=== PATIENT | female | born 1970 | race Caucasian/White ===

== ENCOUNTER 2022-12-09 | Observation (INO) | payer MEDICARE, BC, SELFPAY ==
[2022-12-09 00:24] VITALS: BMI 48.5
[2022-12-09 00:31] VITALS: PULSE 91
--- NOTE | 2022-12-09 00:31 | CA_ITS ---
APPROVED REPORT EXAM: Comprehensive 2D, Doppler, and color-flow Echocardiogram [employer] Combination: Sandra Elias, RT(R) Ht: 5 ft 4 in Wt: 283lbs BSA: 2.27 BP: 164/88 mmHg Indications: NSTEMI,CP,DM,CHF,THN,HLP MORBID OBESITY 2D Dimensions LVOT 2.37 cm (M/F) 1.5-2.5 M-Mode Dimensions RVDd 2.94 cm (0.9-2.6) LA Diam 4.75 cm (1.9-4.0) LVDd 8.30 cm (3.5-5.7) Ao Diam 3.27 cm (2.0-3.7) LVDs 7.09 cm (3.5-5.7) IVSd 0.80 cm (0.6-1.1) PWd 1.09 cm (0.6-1.1) EF (Teich) 29.70% FS 14.60% EDV (Teich) 374.10 mL ESV (Teich) 262.90 mL LV Diastology E Decel Time 203.00 (160-240 msec) E/A Ratio 3.0 MED E' 6.10 (< 7 cm/sec) E'/MED E' Ratio 17.80 (>14) LAT E' 5.20 (<10 cm/sec) E/LAT E' Ratio 20.88 (>14) Mitral Valve MV E Max Damián. 109.00 (40-130 cm/s) MV A Velocity 36.00 (40-130 cm/s) E/A Ratio 2.99 MV Decel. Time 203.00 (160-240 ms) MV PHT 60.00 ms Left Ventricle Technically difficult study because of the patient factors and poor acoustic windows. Left atrium is mildly enlarged, left ventricle is mildly dilated, severe reduced left ventricular systolic function, estimated ejection fraction 30%, left ventricle is globally hypokinetic, diastolic parameters are inconclusive. Right Ventricle Right atrium and right ventricular normal size and contractility, pacemaker lead seen in right ventricle. Aortic Valve Aortic valve is minimally thickened and fibrosed there is no aortic stenosis or aortic insufficiency. Mitral Valve Mitral valve leaflets are minimally thickened, chordal structures are abnormally thickened and calcified, there is no significant mitral inflow obstruction, there is mild mitral regurgitation. Tricuspid Valve Tricuspid grossly normal, there is mild tricuspid regurgitation, tricuspid regurgitation jet velocity is inadequate for calculation of the right ventricular systolic pressure. Pulmonic Valve Pulmonic valve is poorly visualized. Great Vessels Aortic root is normal size. Inferior vena cava is poorly visualized. Pericardium No significant pericardial effusion noted. Conclusion 1. Technically difficult study because of the patient factors and poor acoustic windows. 2. Mildly enlarged left atrium, dilated left ventricle, severely reduced left ventricular systolic function, estimated ejection fraction 30%, left ventricle is globally hypokinetic, diastolic parameters are inconclusive. 3. Abnormal mitral valve as described above without significant mitral inflow obstruction, there is mild mitral regurgitation. 4. No significant pericardial effusion noted. 5. Inferior vena cava is poorly visualized. Electronically signed by : Barry Jamison MD 12/09/2022 17:12:09
--- NOTE | 2022-12-09 00:35 | EXP.HP ---
History of Present Illness *Admission Date: 12/09/22 *Reason for visit:: chest pain *History of present illness: Pt is a transfer from [place] due to chest pain / nstemi. PT presented to their facility with chest pain of 12 hours duration. Patient states that at 1:30 PM on 12/08 she began having chest pain that occurred with rest and exertion. She also endorses weight gain the last few days, increased swelling in her legs and dyspnea and orthopnea. She was taking 80 mg p.o. twice daily Lasix but was decreased to 40 p.o. Lasix twice daily. Since dose reduction she has had swelling. In the ER troponins positive greater than 1000, EKG with no ST segment changes. She was started on aspirin Brilinta and heparin drip. She has not able to take nitro due to allergy (rash and itching). She has been given 2 mg morphine which helps with her symptoms for 1 hour. [facility] was contacted for transfer and accepted patient. [facility] Disclaimer: The information contained in this section may have been updated after the patient was seen, as this information can be updated by other users. Medical History (Updated 12/09/22 @ 05:55 by Julio Alexander MD) Chronic kidney disease Congestive heart failure COPD (chronic obstructive pulmonary disease) Diabetes mellitus, type 2 Edema History of anemia History of back pain History of chest pain History of gastroesophageal reflux (GERD) History of left heart catheterization (LHC) Hyperlipidemia Hypertension Osteoarthritis Pneumonia Surgical History History of appendectomy History of automatic internal cardiac defibrillator (AICD) History of cholecystectomy Family History (Updated 12/09/22 @ 01:37 by Michelle Singletary RN) Other Cancer of kidney Social History (Updated 12/09/22 @ 01:33 by Michelle Singletary RN) Smoking Status: Never smoker alcohol intake: never current occupational status: disabled Travel in the last 8 weeks: None Review of Systems Review of Systems Review of systems:: unable to obtain (Conversational dyspnea) Meds Home Medications and Allergies Home Medications Medication Instructions Recorded Confirmed Type acetaminophen 325 mg tablet 325 mg PO QID PRN Pain 12/09/22 12/09/22 History (Tylenol) allopurinol 100 mg tablet 100 mg PO DAILY Gout 12/09/22 12/09/22 History ampicillin sodium 2 gram 2 g IV Q8 Infection 12/09/22 12/09/22 History intravenous solution aspirin 81 mg capsule 81 mg PO DAILY Blood thinner 12/09/22 12/09/22 History atorvastatin 80 mg tablet 80 mg PO DAILY Cholesterol 12/09/22 12/09/22 History ceftriaxone 1 gram intravenous 1 g IV Q12H Infection 12/09/22 12/09/22 History solution clopidogrel 75 mg tablet 75 mg PO DAILY Blood thinner 12/09/22 12/09/22 History duloxetine 60 mg capsule,delayed 60 mg PO DAILY Depression 12/09/22 12/09/22 History release sprinkle furosemide 40 mg tablet 40 mg PO BID Heart failure 12/09/22 12/09/22 History gabapentin 100 mg capsule 100 mg PO TID Pain 12/09/22 12/09/22 History lorazepam 2 mg tablet 2 mg PO TID PRN Anxiety 12/09/22 12/09/22 History melatonin 10 mg tablet 10 mg PO HS PRN Sleep 12/09/22 12/09/22 History metoprolol succinate 25 mg capsule 25 mg PO DAILY Hypertension 12/09/22 12/09/22 History sprinkle, ext. release 24 hr ondansetron HCl 4 mg tablet 4 mg PO Q6H PRN Nausea And Vomiting 12/09/22 12/09/22 History potassium chloride 20 mEq 20 meq PO DAILY electrolyte 12/09/22 12/09/22 History tablet,extended release promethazine 12.5 mg tablet 12.5 mg PO Q6H PRN Nausea 12/09/22 12/09/22 History ranolazine 1,000 mg 1,000 mg PO Q12 Chest pain 12/09/22 12/09/22 History tablet,extended release,12 hr (Ranexa) tizanidine 4 mg capsule 4 mg PO HS PRN Muscle Spasm 12/09/22 12/09/22 History New Prescriptions to Start Prescriptions: Allergies Allergy/AdvReac Type Severity Reaction Status Date / Time keto
[2022-12-09 00:40] VITALS: BP 143/91; PULSE 90; RESP 20; TEMP 36.7; O2SAT 98
--- NOTE | 2022-12-09 00:45 | XR_ITS ---
PROCEDURE INFORMATION: Exam: XR Chest Exam date and time: 12/09/2022 12:51 AM Age: 52 years old Clinical indication: Shortness of breath; Additional info: Chf TECHNIQUE: Imaging protocol: Radiologic exam of the chest. Views: 1 view. COMPARISON: No relevant prior studies available. FINDINGS: Tubes, catheters and devices: Dual lead left-sided cardiac pacemaker. Lungs: Granulomatous changes. Mild atelectasis in the lung bases. Pleural spaces: Unremarkable. No pleural effusion. No pneumothorax. Heart/Mediastinum: Cardiomegaly. Bones/joints: Unremarkable. IMPRESSION: No acute findings.
[2022-12-09 01:13] LABS: POC Glucose,Bedside 125 (70-110)
[2022-12-09 01:59] LABS: Microscopic, Urine URINE MICROSCOPIC (MICROSCOPIC)
[2022-12-09 02:01] LABS: Basophils % 0.4 % (0.1-2.0); Eosinophils # 0.6 K/mm3 (0.0-0.4); Hematocrit 35.2 % (37.0-47.0); Hemoglobin 11.4 g/dL (12.2-16.2); Lymphocytes # 1.9 K/mm3 (0.7-4.5); Lymphocytes % 23.5 % (10-50); Mean Corpuscular HGB Conc 32.5 g/dL (31.8-35.4); Mean Corpuscular Hemoglobin 27.7 pg (27.0-31.2); Mean Corpuscular Volume 85.4 fl (81-99); Monocytes # 0.4 K/mm3 (0.1-1.0); Monocytes % 5.5 % (1.7-9.3); Neutrophils % 62.6 % (37.0-80.0); Platelet Count 304 K/mm3 (142-424); Red Blood Count 4.12 M/mm3 (4.20-5.40); Red Cell Distribution Width 17.1 % (11.5-17.5); White Blood Count 7.9 K/mm3 (4.8-10.8)
[2022-12-09 02:08] LABS: Creatine Kinase 113 U/L (30-135)
[2022-12-09 02:08] LABS: Appearance,Urine CLEAR (Clear); Bilirubin,Urine Negative (Negative); Blood, Urine Negative (Negative); Color,Urine YELLOW (Yellow); Glucose,Urine (UA) Negative (Negative); Ketones,Urine Negative (Negative); Leukocyte Esterase,Urine Negative (Negative); Nitrate,Urine Negative (Negative); Protein,Urine TRACE (Negative); Specific Gravity, Urine 1.015 (1.005-1.030); Urobilinogen,Urine 0.2 EU/dl (0.2)
[2022-12-09 02:09] LABS: Lactic Acid 1.2 mmol/L (0.7-2.1)
[2022-12-09 02:11] LABS: INR 0.96 (0.9-1.1); Prothrombin Time 10.4 seconds (10.1-12.5)
[2022-12-09 02:18] LABS: CKMB Relative Index 1.2 U/L (0-4.0); Creatine Kinase MB 1.4 ng/ml (0.0-2.03)
[2022-12-09 02:21] LABS: Troponin I 0.03 ng/ml (0.00-0.034)
[2022-12-09 02:27] LABS: Chloride 104 mmol/L (98-107); Sodium 141 mmol/L (136-145)
[2022-12-09 02:28] LABS: Potassium 3.7 mmoL/L (3.5-5.1)
[2022-12-09 02:30] LABS: Alanine Aminotransferase 18 U/L (12-78); Albumin/Globulin Ratio 1.2 (1.1-1.8); Alkaline Phosphatase 141 U/L (38-126); Anion Gap 10.7 mEq/L (5-15); Aspartate Amino Transferase 21 U/L (14-36); Bilirubin,Total 0.8 mg/dl (0.2-1.3); Blood Urea Nitrogen 14 mg/dl (7-17); Carbon Dioxide 30 mmol/L (22.0-30.0); Cholesterol 138 mg/dl (140-200); Creatinine Clearance Estimated 25 mL/min (50-200); Estimated Glomerular Filt Rate 23 ml/min (>60); GFR (African American) 28 ML/MIN (>60); Globulin 3.3 g/dL (1.3-3.2); Phosphorous 3.2 mg/dl (2.5-4.5); Total Protein,Serum 7.3 g/dl (6.3-8.2); Triglycerides 214 mg/dl (30-150); VLDL Cholesterol 43 mg/dL (0-40)
[2022-12-09 02:31] LABS: Calcium 8.8 mg/dl (8.4-10.2); Chol/HDL Ratio 4.2 (1-3.5); Glucose 165 mg/dl (74-100); HDL Cholesterol 33 mg/dl (40-60); Magnesium 1.5 mg/dl (1.6-2.3)
[2022-12-09 02:32] LABS: Activated Partial Thrombo Time 28.2 seconds (22.8-30.6)
[2022-12-09 02:42] LABS: Direct LDL Cholesterol 74.32 mg/dL (100-129)
--- NOTE | 2022-12-09 02:44 | PC.NURSE ---
spoke with shahab melvin from [facility] regarding patients ptt. no changes to rate. recheck ptt in [address] order.
[2022-12-09 04:00] VITALS: BP 161/82; PULSE 80; PULSE 95; RESP 22; TEMP 36.7; O2SAT 97; BMI 48.3
--- NOTE | 2022-12-09 05:37 | PC.NURSE ---
[facility] transfer center called requesting bed at 2138 on 12/08. Pt information taken and relayed to Hospitalist (Roscoe Alexander). [facility] called back at 215 with acceptance from hospitalist. Bed assignment given at this time (208). Pt arrived to ED at 0000 12/09.
--- NOTE | 2022-12-09 06:08 | PC.NURSE ---
a&ox4. 2L nc. receving heparin gtt at 20ml/hr. horvath in place draining pale urine. npo after midnight for cards consult. prn pain med given for chest pain.
[2022-12-09 06:25] LABS: Phosphorous 3.7 mg/dl (2.5-4.5)
[2022-12-09 06:42] LABS: Troponin I 0.03 ng/ml (0.00-0.034)
[2022-12-09 07:06] LABS: POC Glucose,Bedside 137 (70-110)
--- NOTE | 2022-12-09 07:51 | HMH.PHAHEP ---
[facility] Heparin Dosing Demographic Data Admission date:: 12/09/22 Date: 12/09/22 Time: 07:51 Allergies Allergy/AdvReac Type Severity Reaction Status Date / Time ketorolac [From Toradol] Allergy Verified 12/09/22 00:29 metformin Allergy Verified 12/09/22 00:29 nitroglycerin Allergy Verified 12/09/22 00:29 tramadol Allergy Verified 12/09/22 00:29 Height: 1.63 m Weight: 128.4 kg Indication Medication therapy:: Heparin Current Active Problems (Updated 12/09/22 @ 05:55 by Julio Alexander MD) NSTEMI (non-ST elevated myocardial infarction) (Acute) CVA?: No Bleeding problem?: No Kidney disease?: No LA?: No Desired PTT range:: 50-75 seconds Labs Anticoagulation Lab Results:: 12/09/22 01:45 Hgb 11.4 L Hct 35.2 L Plt Count 304 Monitoring Dose Monitor 1: Date: 12/09/22 Time: 01:45 PTT Result:: 28.2 Infusion Rate:: 1,000 UNITS/HR Comment:: 4,000 UNIT BOLUS Dose Monitor 2: Date: 12/09/22 Time: 08:30 PTT Result:: 36.0 Infusion Rate:: INCREASE RATE TO 1,500 UNITS/HR Comment:: 4,000 UNIT BOLUS Core Measures Is INR > or = 2 at discharge?: No Most Recent Labs:: Laboratory Results - last 24 hr 12/09/22 01:04: POC Glucose 125 H 12/09/22 01:20: Urine Color Yellow, Urine Appearance Clear, Urine pH 7.0, Ur Specific [place] 1.015, Urine Protein Trace, Urine Glucose (UA) Negative, Urine Ketones Negative, Urine Blood Negative, Urine Nitrate Negative, Urine Bilirubin Negative, Urine Urobilinogen 0.2, Ur Leukocyte Esterase Negative, Urine RBC None, Urine WBC None, Ur Squamous Epith Cells None, Urine Bacteria None 12/09/22 01:45: Total Creatine Kinase 113, CK-MB (CK-2) 1.4, CK-MB (CK-2) Rel Index 1.2, Troponin I 0.03 12/09/22 01:45: WBC 7.9, RBC 4.12 L, Hgb 11.4 L, Hct 35.2 L, MCV 85.4, MCH 27.7, MCHC 32.5, RDW 17.1, Plt Count 304, MPV 8.0, Neut % (Auto) 62.6, Lymph % (Auto) 23.5, [place] % (Auto) 5.5, Eos % (Auto) 8.0, Baso % (Auto) 0.4, Neut # (Auto) 5.0, Lymph # (Auto) 1.9, [place] # (Auto) 0.4, Eos # (Auto) 0.6 H, Baso # (Auto) 0.0 12/09/22 01:45: PT 10.4, INR 0.96 12/09/22 01:45: Sodium 141, Potassium 3.7, Chloride 104, Carbon Dioxide 30, Anion Gap 10.7, BUN 14, Creatinine 2.20 H, Estimated Creat Clear 25, Estimated GFR 23 L, Est GFR ( Amer) 28 L, Glucose 165 H, Calcium 8.8, Phosphorus 3.2, Magnesium 1.5 L, Total Bilirubin 0.8, AST 21, ALT 18, Alkaline Phosphatase 141 H, Total Protein 7.3, Albumin 4.0, Globulin 3.3 H, Albumin/Globulin Ratio 1.2, Triglycerides 214 H, Cholesterol 138 L, LDL Cholesterol Direct 74.32 L, VLDL Cholesterol 43 H, HDL Cholesterol 33 L, Cholesterol/HDL Ratio 4.2 H 12/09/22 01:45: Lactate 1.2 12/09/22 01:45: APTT 28.2 12/09/22 06:04: Phosphorus 3.7, Troponin I 0.03 12/09/22 06:55: POC Glucose 137 H Were Heparin and Warfarin started on the same day?: No
[2022-12-09 07:53] LABS: Coronavirus 19, PCR Not Detected (NotDetected); Influenza A, PCR Not Detected (NotDetected); Influenza B, PCR Not Detected (NotDetected)
[2022-12-09 08:00] VITALS: BP 159/92; PULSE 89; PULSE 90; RESP 16; TEMP 36.8; O2SAT 97
--- NOTE | 2022-12-09 08:23 | HMH.PHAINT1 ---
Pharmacy Intervention Comments: Medication reconciliation completed using external fill history
--- NOTE | 2022-12-09 11:13 | EXP.DC.SUM ---
General Admission date:: 12/09/22 Discharge date: 12/09/22 HPI HPI HPI: Pt is a transfer from [facility] ED due to chest pain / nstemi-type II. PT presented to their facility with chest pain of 12 hours duration. Patient states that at 1:30 PM on 12/08 she began having chest pain that occurred with rest and exertion. She also endorses weight gain the last few days, increased swelling in her legs and dyspnea and orthopnea. She was taking 80 mg p.o. twice daily Lasix but was decreased to 40 p.o. Lasix twice daily. Since dose reduction she has had swelling. In the ER troponins positive greater than 1000 and plateaued, EKG with no ST segment changes. She was started on aspirin Brilinta and heparin drip. She has not able to take nitro due to allergy (rash and itching). She has been given 2 mg morphine which helps with her symptoms for 1 hour. [facility] was contacted for transfer and accepted patient. Hospital Course Hospital Course Hospital Course: The patient is admitted to the medical unit with telemetry and pulse oximetry monitoring. She was continued on IV loop diuretic therapy as started in the ED at [facility]. The patient identified significant diuresis and reported improvement with no further chest pain. Cardiology evaluated the patient and recommended conservative management with loop diuretic therapy. Her troponins were consistent with a type II secondary to heart failure with reduced ejection fraction. Her ED BNP was reviewed. Her recent multiple hospitalizations were noted. Her [facility] admission on November 14 and discharged on November 16 was reviewed as well. She identified Dr. Lucas as her regular sex therapist ([place], [place]). Her echocardiogram from her hospitalization in October was reviewed identifying an ejection fraction of 20-25%. She has an AICD. We discussed her multiple hospitalizations, reduced ejection fraction, chronic kidney disease (stage IV with baseline creatinine 2.4) and respiratory disease (COPD and PAH). We discussed the importance of compliance with medications and routine outpatient follow-ups. We have recommended palliative care consultation and she will follow-up with her PCP to have further discussions concerning her advanced congestive heart failure and co-morbidities. We have recommended a 1 week follow-up with her PCP. I spent 35 minutes in [id number] time with the patient and nursing staff concerning the discharge process. We discussed the admitting diagnoses and hospital course. We discussed identified improvement and the patient's desire to be discharged. We reviewed inpatient studies and imaging. The patient voiced understanding on the importance of follow-up with her primary care provider and specialist(s). The patient plans to be compliant with the medication regimen prescribed and follow-up appointments. She understands that she can return to the emergency department with any sudden changes or concerns. Exam Data for Last 24 hours Vital signs and Labs for Last 24 Hours: Temp Pulse Resp BP Pulse Ox 98.2 F 89 16 159/92 H 97 12/09/22 08:00 12/09/22 08:00 12/09/22 08:00 12/09/22 08:00 12/09/22 08:00 Laboratory Results - last 24 hr 12/09/22 01:04: POC Glucose 125 H 12/09/22 01:20: Urine Color Yellow, Urine Appearance Clear, Urine pH 7.0, Ur Specific [place] 1.015, Urine Protein Trace, Urine Glucose (UA) Negative, Urine Ketones Negative, Urine Blood Negative, Urine Nitrate Negative, Urine Bilirubin Negative, Urine Urobilinogen 0.2, Ur Leukocyte Esterase Negative, Urine RBC None, Urine WBC None, Ur Squamous Epith Cells None, Urine Bacteria None 12/09/22 01:45: Total Creatine Kinase 113, CK-MB (CK-2) 1.4, CK-MB (CK-2) Rel Index 1.2, Troponin I 0.03 12/09/22 01:45: WBC 7.9, RBC 4.12 L, Hgb 11.4 L, Hct 35.2 L, MCV 85.4, MCH 27.7, MCHC 32.5, RDW 17.1, Plt Count 304, MPV 8.0, Neut % (Auto) 62.6, Lymph % (A
--- NOTE | 2022-12-09 11:22 | EXP.CARD.CON ---
History of Present Illness History of Present Illness Consult date: 12/09/22 Requesting physician: Den Decker Consult reason: chest pain Chief complaint: nstemi Additional Medical History:: Significant Past Medical Hx Chronic hypoxic respiratory failure due to COPD Diabetes mellitus Chronic HFrEF- EF 25 % s/p AICD CKD stage IV- solitary kidney- baseline kidney function 2.4 Chronically elevated troponin Moderate MR s/p mv clip Oct 2021 mild pulmonary htn [facility] 07/03/2022- Diffuse CAD. No intervention indicated- [facility] History of present illness: Per Hospitalist note: Pt is a transfer from [place] due to chest pain / nstemi. PT presented to their facility with chest pain of 12 hours duration.? Patient states that at 1:30 PM on 12/08 she began having chest pain that occurred with rest and exertion.? She also endorses weight gain the last few days, increased swelling in her legs and dyspnea and orthopnea.? She was taking 80 mg p.o. twice daily Lasix but was decreased to 40 p.o. Lasix twice daily.? Since dose reduction she has had swelling. In the ER troponins positive greater than 1000, EKG with no ST segment changes.? She was started on aspirin Brilinta and heparin drip.? She has not able to take nitro due to allergy (rash and itching).? She has been given 2 mg morphine which helps with her symptoms for 1 hour.? [facility] was contacted for transfer and accepted patient. Cardiology note: Patient endorses above story. Reports after presenting to [facility] was given morphine and symptoms resolved. Reports she had a LHC in June or July of last year at [facility] and did not get any stenting. Reports has chronically occluded lesions and sees Dr. Bell (cardiology) in [place], who she saw last week. Patient also reports she is currently taking IV antibiotics at home for bacteremia. Initial and repeat trop at [facility] are 0.03. Creatinine noted to be 2.2. EKG is negative for acute ischemic changes. Records reviewed from [place]- of note patient has been evalutated at 5 different facilities since july and usually leaves AMA after recieving narcotic pain medications. Currently patient is resting, denies chest pain or soa. [facility] Disclaimer: The information contained in this section may have been updated after the patient was seen, as this information can be updated by other users. Medical History (Updated 12/09/22 @ 11:37 by Payal Billy APRN) Chronic kidney disease Congestive heart failure COPD (chronic obstructive pulmonary disease) Diabetes mellitus, type 2 Edema History of anemia History of back pain History of chest pain History of gastroesophageal reflux (GERD) History of left heart catheterization (LHC) Hyperlipidemia Hypertension Osteoarthritis Pneumonia Surgical History History of appendectomy History of automatic internal cardiac defibrillator (AICD) History of cholecystectomy Family History (Updated 12/09/22 @ 01:37 by Michelle Singletary RN) Other Cancer of kidney Social History (Updated 12/09/22 @ 01:33 by Michelle Singletary RN) Smoking Status: Never smoker alcohol intake: never current occupational status: disabled Travel in the last 8 weeks: None Review of Systems Review of Systems Review of systems:: pertinent systems reviewed and negative unless documented below *Cardiovascular Cardiovascular: Reports chest pain at rest Exam Data for Last 24 hours Vital signs and Labs for Last 24 Hours: Temp Pulse Resp BP Pulse Ox 98.2 F 89 16 159/92 H 97 12/09/22 08:00 12/09/22 08:00 12/09/22 08:00 12/09/22 08:00 12/09/22 08:00 Laboratory Results - last 24 hr 12/09/22 01:04: POC Glucose 125 H 12/09/22 01:20: Urine Color Yellow, Urine Appearance Clear, Urine pH 7.0, Ur Specific [place] 1.015, Urine Protein Trace, Urine Glucose (UA) Negative, Urine Ketones Negative, Urine Blood Negative,
[2022-12-09 11:41] VITALS: PULSE 82; RESP 20
--- NOTE | 2022-12-09 12:13 | HMH.PHAINT1 ---
Pharmacy Intervention Comments: Discussed discharge medications with patient. Patient verbalized understanding and had no questions at this time
--- NOTE | 2022-12-09 12:49 | PC.NURSE ---
PT WILL BE DISCHARGED HOME WITH FOLLOW UP APPOINTMENTS. PT WILL NEED TO FOLLOW UP WITH HER CARDIOLOGY AND HER PCP. PT STATED SHE WOULD BE COMPLIANT WITH FOLLOW UP AND HER MEDICATION REGIMEN. PICC LINE DRESSING WAS CHANGED BEFORE DISCHARGE. CATHETER WAS DC'D. PT DIURESED WELL WITH IV LASIX.
--- NOTE | 2022-12-10 11:30 | CARE MANAGER ---
Spoke with patient related to hospital discharge. Patient states she is picking up her Magnesium this afternoon and is aware of her follow up appointments. Denies any questions or concerns at this time. SEGUNDO Oakes
== END 2022-12-09 12:57 | disposition home or self-care (01) ==
PROVIDERS: Internal Medicine; Admitting Provider Student in an Organized Health Care Education/Training Program; PCP Pediatrics; Visit Provider Family Medicine
DX: I13.0 Hypertensive heart and chronic kidney disease with heart failure and stage 1 through stage 4 chronic kidney disease, or unspecified chronic kidney disease (principal); I21.A1 Myocardial infarction type 2; I50.23 Acute on chronic systolic (congestive) heart failure; I34.0 Nonrheumatic mitral (valve) insufficiency; E11.22 Type 2 diabetes mellitus with diabetic chronic kidney disease; Z95.810 Presence of automatic (implantable) cardiac defibrillator; Z79.01 Long term (current) use of anticoagulants; J96.01 Acute respiratory failure with hypoxia; Z79.4 Long term (current) use of insulin; N18.4 Chronic kidney disease, stage 4 (severe)
CPT/HCPCS: G0378; G0379; 36415; 71045; 80053; 80061; 81001; 82550; 82553; 82962; 83605; 83735; 84100; 84484; 85025; 85610; 85730; 87040; 93306; C9803; J0696; U0003; U0005

== ENCOUNTER 2023-10-28 02:12 | Observation (INO) | payer MEDICARE, BC, SELFPAY ==
[2023-10-28 02:30] VITALS: BP 155/84; PULSE 74; RESP 18; TEMP 36.8; O2SAT 100
--- NOTE | 2023-10-28 02:30 | PC.NURSE ---
pt arrived to floor via EMS @2:20
--- NOTE | 2023-10-28 02:31 | P.HP_ITS ---
History of Present Illness *Admission Date: 10/28/23 *Reason for visit:: CP *History of present illness: This is a 53yo F with PMHx of CAD, IDDM, CHF, mitral regurgitation, PPM in situ, CKD, transferred from [place] due to chest pain / nstemi. PT presented to their facility with intermittent chest pain, and high blood sugar. In the ER troponins positive greater than 1000, EKG with no ST segment changes. She was started on aspirin Brilinta and heparin drip. She has not able to take nitro due to allergy (rash and itching). She has been given 2 mg morphine which helps with her symptoms for 1 hour. there was no cardiology available for consult therefore [facility] was contacted for transfer and accepted patient. [facility] Disclaimer: The information contained in this section may have been updated after the patient was seen, as this information can be updated by other users. Medical History (Updated 10/28/23 @ 09:02 by FILOMENA Weaver) Chronic kidney disease Congestive heart failure COPD (chronic obstructive pulmonary disease) Diabetes mellitus, type 2 Edema History of anemia History of back pain History of chest pain History of gastroesophageal reflux (GERD) History of left heart catheterization (LHC) Hyperlipidemia Hypertension Osteoarthritis Pneumonia Surgical History (Updated 10/28/23 @ 06:23 by Kelvin Owen APRN) History of appendectomy History of automatic internal cardiac defibrillator (AICD) History of cholecystectomy Family History (Updated 10/28/23 @ 02:38 by Lia Guerrero RN) Mother Breast cancer Grandmother Breast cancer Other Cancer of kidney Social History (Updated 10/28/23 @ 02:39 by Lia Guerrero RN) Smoking Status: Former smoker alcohol intake: never current occupational status: disabled Travel in the last 8 weeks: None Review of Systems Review of Systems Review of systems:: pertinent systems reviewed and negative unless documented below Meds Home Medications and Allergies Home Medications Medication Instructions Recorded Confirmed Type acetaminophen 325 mg tablet 325 mg PO QID PRN Pain 12/09/22 10/28/23 History (Tylenol) albuterol sulfate 90 mcg/actuation 1 puff inhalation QIDP PRN 12/09/22 10/28/23 History aerosol inhaler breathing problems allopurinol 100 mg tablet 100 mg PO DAILY Gout 12/09/22 10/28/23 History aripiprazole 2 mg tablet 2 mg PO DAILY mood 12/09/22 10/28/23 History atorvastatin 80 mg tablet 80 mg PO DAILY Cholesterol 12/09/22 10/28/23 History duloxetine 60 mg capsule,delayed 60 mg PO DAILY Depression 12/09/22 10/28/23 History release sprinkle gabapentin 100 mg capsule 100 mg PO DAILY Pain 12/09/22 10/28/23 History insulin detemir U-100 100 unit/mL 46 unit SQ BID Diabetes 12/09/22 10/28/23 History subcutaneous solution (Levemir U-100 Insulin) insulin lispro 100 unit/mL 0 sliding scale dose SQ TIDWMEAL 12/09/22 10/28/23 History subcutaneous pen Diabetes lorazepam 2 mg tablet 2 mg PO BID Anxiety 12/09/22 10/28/23 History melatonin 10 mg tablet 10 mg PO HS PRN Sleep 12/09/22 10/28/23 History ondansetron HCl 4 mg tablet 4 mg PO Q6H PRN Nausea And Vomiting 12/09/22 10/28/23 History pantoprazole 40 mg tablet,delayed 40 mg PO DAILY Acid reflux 12/09/22 10/28/23 History release potassium chloride 20 mEq 20 meq PO DAILY electrolyte 12/09/22 10/28/23 History tablet,extended release semaglutide 1 mg/dose (4 mg/3 mL) 1 mg SQ WEEKLY Diabetes 12/09/22 10/28/23 His tory subcutaneous pen injector (Ozempic) tizanidine 4 mg capsule 4 mg PO HS PRN Muscle Spasm 12/09/22 10/28/23 History isosorbide mononitrate 30 mg 30 mg PO DAILY 10/28/23 10/28/23 History tablet,extended release 24 hr metoprolol succinate 50 mg 150 mg PO AM 10/28/23 10/28/23 History tablet,extended release 24 hr rivaroxaban 15 mg tablet (Xarelto) 15 mg PO DAILY 10/28/23 10/28/23 History torsemide 20 mg tablet 20 mg PO DAILY 10/28/23 10/28/23 History New Prescriptions to Start Prescriptions: Allergies Allergy/AdvReac Type Severity Reaction Status Date / Time ketorolac [From Toradol] Allergy Rash Verified 10/28/23 02:27 metformin Allergy Diarrhea Verified 10/28/23 02:27 nitroglycerin Allergy Rash Verified 10/28/23 02:27 Penicillins Allergy Rash Verified 10/28/23 02:27 tramadol Allergy Rash Verified 10/28/23 02:27 Exam Data for Last 24 hours I & O for Last 24 hours: Intake & Output 12/06/22 12/07/22 12/08/22 12/09/22 23:59 23:59 23:59 23:59 Weight 128.367 kg Constitutional Constitutional: moderate distress and morbidly obese *Routine HEENT Exam Head: Present normocephalic Eye: Present EOMI ENT: Present mucous membranes moist *Routine Neck Exam Neck: Present supple and full ROM *Routine Respiratory Exam Respiratory: Present rhonchi, diminished air movement and able to speak in complete sentences; Absent normal respiratory effort *Routine Cardiovascular Exam Cardiovascular: Present RRR, Normal S1 and Normal S2 *Routine Abdominal Exam Abdominal: Present soft; Absent tenderness *Routine Rectal Exam Rectal:: deferred *Routine Genitalia Exam Genitalia:: deferred *Routine Extremities Exam Extremities: Present edema; Absent cyanosis *Routine Skin Exam Skin: Present intact; Absent cyanosis *Routine Neurological Exam Neurological: Present alert and oriented X3 H&P: Result Imaging and Cardiology EKG: Status: image reviewed by me and Preliminary report Assessment and Plan *Assessment and plan (1) Intermittent chest pain: Status: Acute Category: Medical Code(s): R07.9 - Chest pain, unspecified (2) Mitral regurgitation: Status: Acute Qualifiers: Cardiac valve disease etiology: etiology unspecified Qualified Code(s): I34.0 - Nonrheumatic mitral (valve) insufficiency Category: Medical Code(s): I34.0 - Nonrheumatic mitral (valve) insufficiency (3) Chronic systolic heart failure: Status: Acute Category: Medical Code(s): I50.22 - Chronic systolic (congestive) heart failure (4) Diabetes mellitus, type 2: Status: Acute Qualifiers: Diabetes mellitus complication status: with other specified complication Diabetes mellitus remote computer terminal operator insulin use: with remote computer terminal operator use Qualified Code(s): E11.69 - Type 2 diabetes mellitus with other specified complication; Z79.4 - terminal make up operator (current) use of insulin Category: Medical Code(s): E11.9 - Type 2 diabetes mellitus without complications (5) Chronic kidney disease: Status: Acute Qualifiers: Chronic kidney disease stage: stage 3 (moderate) Chronic kidney disease stage 3 subtype: stage 3a (GFR 45-59) Qualified Code(s): N18.31 - Chronic kidney disease, stage 3a Category: Medical Code(s): N18.9 - Chronic kidney disease, unspecified (6) History of gastroesophageal reflux (GERD): Status: Acute Category: Medical Code(s): Z87.19 - Personal history of other diseases of the digestive system (7) Hyperlipidemia: Status: Acute Qualifiers: Hyperlipidemia type: unspecified Qualified Code(s): E78.5 - Hyperlipidemia, unspecified Category: Medical Code(s): E78.5 - Hyperlipidemia, unspecified (8) History of automatic internal cardiac defibrillator (AICD): Status: Acute Category: Surgical Code(s): Z95.810 - Presence of automatic (implantable) cardiac defibrillator Plan 53yo F with PMHx of CAD, IDDM, CHF, mitral regurgitation, PPM in situ, CKD, transferred from [place] due to chest pain / nstemi. PT presented to their facility with intermittent chest pain, and high blood sugar. Per report her troponin was high, discussed with referring provider. Accepted for admission. Plan as follow: -Intermittent chest pain: Patient with history of diffuse coronary artery disease, has been medically managed: to rule out NSTEMI or ACS Admitted for cardiac telemetry. Cardiology consult Obtain serial troponin Monitor for chest pain Vital signs per unit EKG reviewed. No ST changes. V paced. -Insulin-dependent diabetes mellitus with hyperglycemia Suspect and no well-controlled Resume home insulin. Currently 46 units of Levemir Accu-Chek before meals Obtain A1c On the sliding scale -continue to monitor reviewed patient with chronic systolic heart failure ejection fraction about 25: Does not seems to be on exacerbation monitor for shortness of breath Cardiology on board. History of chronic kidney disease GERD hyperlipidemia pacemaker in situ: Condition reviewed. Stable Reconcile and resume home medication Patient on Xarelto. And Protonix Full code Attending attestation Patient was seen and evaluated at the bedside myself, agree with QUILT SEWER note.
[2023-10-28 02:55] VITALS: BMI 45.9
[2023-10-28 03:45] LABS: Basophils % 0.3 % (0.1-2.0); Eosinophils # 0.4 K/mm3 (0.0-0.4); Eosinophils % 4.5 % (0.1-12.0); Hematocrit 34.8 % (37.0-47.0); Hemoglobin 10.8 g/dL (12.2-16.2); Lymphocytes # 1.7 K/mm3 (0.7-4.5); Mean Corpuscular HGB Conc 31.1 g/dL (31.8-35.4); Mean Corpuscular Hemoglobin 24.4 pg (27.0-31.2); Mean Corpuscular Volume 78.5 fl (81-99); Mean Platelet Volume 7.8 fl (7.4-10.4); Monocytes # 0.5 K/mm3 (0.1-1.0); Monocytes % 6.3 % (1.7-9.3); Neutrophils # 5.5 K/mm3 (1.8-7.8); Neutrophils % 67.9 % (37.0-80.0); Platelet Count 273 K/mm3 (142-424); Red Blood Count 4.43 M/mm3 (4.20-5.40); Red Cell Distribution Width 17.6 % (11.5-17.5); White Blood Count 8.1 K/mm3 (4.8-10.8)
[2023-10-28 03:46] LABS: Chloride 105 mmol/L (98-107); Potassium 3.9 mmoL/L (3.5-5.1); Sodium 139 mmol/L (136-145)
--- NOTE | 2023-10-28 03:46 | ECG_ITS ---
APPROVED REPORT Exam: Resting ECG HR:76 bpm ECG Measurements Heart Rate 76 AXES MN 149 P 55 QRSd 151 QRS -19 QT 469 T -8 QTc 499 Conclusion ELECTRONIC VENTRICULAR PACEMAKER ABNORMAL RHYTHM ECG UNCONFIRMED REPORT Electronically signed by : Sohan Rodgers MD 10/30/2023 20:39:08
[2023-10-28 03:48] LABS: Blood Urea Nitrogen 27 mg/dl (7-17)
[2023-10-28 03:49] LABS: Alanine Aminotransferase 26 U/L (12-78); Albumin Level 3.8 g/dl (3.5-5.0); Albumin/Globulin Ratio 1.3 (1.1-1.8); Alkaline Phosphatase 167 U/L (38-126); Anion Gap 12.9 mEq/L (5-15); Aspartate Amino Transferase 22 U/L (14-36); Bilirubin,Total 0.5 mg/dl (0.2-1.3); Calcium 8.2 mg/dl (8.4-10.2); Carbon Dioxide 25 mmol/L (22.0-30.0); Cholesterol 121 mg/dl (140-200); Creatinine Clearance Estimated 30 mL/min (50-200); Estimated Glomerular Filt Rate 29 ml/min (>60); GFR (African American) 35 ML/MIN (>60); Globulin 2.9 g/dL (1.3-3.2); Glucose 151 mg/dl (74-100); Magnesium 2.1 mg/dl (1.6-2.3); Total Protein,Serum 6.7 g/dl (6.3-8.2); Triglycerides 125 mg/dl (30-150); VLDL Cholesterol 25 mg/dL (0-40)
[2023-10-28 03:50] LABS: Chol/HDL Ratio 4.2 (1-3.5); HDL Cholesterol 29 mg/dl (40-60)
[2023-10-28 03:55] LABS: INR 0.99 (0.9-1.1); Prothrombin Time 10.7 seconds (10.1-12.5)
[2023-10-28 04:00] VITALS: BP 131/73; PULSE 71; PULSE 77; RESP 20; TEMP 36.4; O2SAT 98; BMI 45.6
[2023-10-28 04:01] LABS: Direct LDL Cholesterol 69.66 mg/dL (100-129)
[2023-10-28 04:02] LABS: Troponin I 0.02 ng/ml (0.00-0.034)
[2023-10-28 04:03] LABS: NT Pro Brain Natriuretic Pep. 1270 pg/mL (0-125)
[2023-10-28 04:40] LABS: Hemoglobin A1C 7.6 % (4.0-6.0)
--- NOTE | 2023-10-28 05:26 | PC.NURSE ---
Since arriving from [place] the patient has been able to rest in bed. The patient did she washed up and changed into a gown. The patient has no had any complaints since arriving. The patient is on 2L NC which is her baseline at home.
[2023-10-28 05:45] LABS: POC Glucose,Bedside 150 (70-110)
--- NOTE | 2023-10-28 05:47 | PC.NURSE ---
Patient has Dexcom in place. Finger stick this morning was 150 via [facility] machine. Dexcom on patient arm read 146.
[2023-10-28 07:38] LABS: Troponin I 0.02 ng/ml (0.00-0.034)
[2023-10-28 08:00] VITALS: BP 151/86; PULSE 90; PULSE 91; RESP 20; TEMP 36.6; O2SAT 97
--- NOTE | 2023-10-28 08:16 | HMH.PHAINT1 ---
Pharmacy Intervention Comments: Home med list verified with patient at bedside and with external pharmacy list.
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
[2023-10-28] MEDS: ATORVASTATIN 40MG TABLET 80 MG PO (09:03)
[2023-10-28] MEDS: DULOXETINE 30MG CAPSULE.DR 60 MG PO (09:03)
[2023-10-28] MEDS: TORSEMIDE 20MG TABLET 20 MG PO (09:03)
[2023-10-28] MEDS: PANTOPRAZOLE 40MG TABLET 40 MG PO (09:04)
[2023-10-28] MEDS: GABAPENTIN 100MG CAPSULE 100 MG PO (09:04)
[2023-10-28] MEDS: METOPROLOL SUCCINATE XL 25MG TABLET 25 MG PO (09:04)
[2023-10-28] MEDS: ISOSORBIDE MONO 30MG TAB.ER.24H 30 MG PO (09:04)
[2023-10-28] MEDS: ALLOPURINOL 100MG TABLET 100 MG PO (09:04)
[2023-10-28] MEDS: POTASSIUM CHLORIDE 20MEQ TAB 20 MEQ PO (09:05)
[2023-10-28] MEDS: INSULIN DETEMIR 100 UNIT/ML 3ML FLEXPEN 46 UNIT SQ (09:06)
[2023-10-28 09:16] LABS: POC Glucose,Bedside 238 (70-110)
--- NOTE | 2023-10-28 11:41 | PC.NURSE ---
Courtesy Round Patient awake sitting on side of bed. Trash emptied and linens checked. Patient refused ice water at this time. Call light within reach
[2023-10-28] MEDS: humaLOG 100 UNITS/ML 3ML VIAL (SSI) SQ (12:02)
[2023-10-28 12:09] LABS: POC Glucose,Bedside 207 (70-110)
[2023-10-28 12:14] VITALS: BP 151/92; PULSE 88; RESP 18; TEMP 36.7; O2SAT 98
--- NOTE | 2023-10-28 12:30 | EXP.DC.SUM ---
General Admission date:: 10/28/23 Discharge date: 10/28/23 HPI HPI HPI: This is a 53yo F with PMHx of CAD, IDDM, CHF, mitral regurgitation, PPM in situ, CKD, transferred from [place] due to chest pain / nstemi. PT presented to their facility with intermittent chest pain, and high blood sugar. In the ER troponins positive greater than 1000, EKG with no ST segment changes. She was started on aspirin Brilinta and heparin drip. She has not able to take nitro due to allergy (rash and itching). She has been given 2 mg morphine which helps with her symptoms for 1 hour. there was no cardiology available for consult therefore [facility] was contacted for transfer and accepted patient. Hospital Course Hospital Course Hospital Course: Patient was seen and evaluated at the bedside on the day of discharge. Patient is stable for discharge. Patient wishes to be discharged. All patient questions were answered and patient was given time to ask questions. Patient was discharged in stable condition. Patient understands that she can return to ER in case of any sudden changes in health. Total time spent on DC - 38 mins 53yo F with PMHx of CAD, IDDM, CHF, mitral regurgitation, PPM in situ, CKD, transferred from [place] due to chest pain / nstemi. PT presented to their facility with intermittent chest pain, and high blood sugar. Per report her troponin was high, discussed with referring provider. Accepted for admission. Plan as follow: -Intermittent chest pain: resolved, recently had cath, f/u with cardiology as oP, patient has cardiology f/u as OP per patient -Insulin-dependent diabetes mellitus with hyperglycemia - stable, she had 3 mountain dew all together per patient -continue to monitor reviewed patient with chronic systolic heart failure ejection fraction about 25: Does not seems to be on exacerbation monitor for shortness of breath Cardiology on board. History of chronic kidney disease GERD hyperlipidemia pacemaker in situ: Condition reviewed. Stable Reconcile and resume home medication Patient on Xarelto. And Protonix Full code Exam Data for Last 24 hours Vital signs and Labs for Last 24 Hours: Temp Pulse Resp BP Pulse Ox O2 Del Method O2 Flow Rate 98.1 F 88 18 151/92 H 98 Nasal Cannula 2 10/28/23 12:14 10/28/23 12:14 10/28/23 12:14 10/28/23 12:14 10/28/23 12:14 10/28/23 12:14 10/28/23 09:00 Laboratory Results - last 24 hr 10/28/23 03:30: WBC 8.1, RBC 4.43, Hgb 10.8 L, Hct 34.8 L, MCV 78.5 L, MCH 24.4 L, MCHC 31.1 L, RDW 17.6 H, Plt Count 273, MPV 7.8, Neut % (Auto) 67.9, Lymph % (Auto) 21.0, [place] % (Auto) 6.3, Eos % (Auto) 4.5, Baso % (Auto) 0.3, Neut # (Auto) 5.5, Lymph # (Auto) 1.7, [place] # (Auto) 0.5, Eos # (Auto) 0.4, Baso # (Auto) 0.0, PT 10.7, INR 0.99, Sodium 139, Potassium 3.9, Chloride 105, Carbon Dioxide 25, Anion Gap 12.9, BUN 27 H, Creatinine 1.80 H, Estimated Creat Clear 30, Estimated GFR 29 L, Est GFR ( Amer) 35 L, Glucose 151 H, Hemoglobin A1c 7.6 H, Calcium 8.2 L, Magnesium 2.1, Total Bilirubin 0.5, AST 22, ALT 26, Alkaline Phosphatase 167 H, Troponin I 0.02, NT-Pro-B Natriuret Pep 1270 H, Total Protein 6.7, Albumin 3.8, Globulin 2.9, Albumin/Globulin Ratio 1.3, Triglycerides 125, Cholesterol 121 L, LDL Cholesterol Direct 69.66 L, VLDL Cholesterol 25, HDL Cholesterol 29 L, Cholesterol/HDL Ratio 4.2 H 10/28/23 05:33: POC Glucose 150 H 10/28/23 06:40: Troponin I 0.02 10/28/23 09:01: POC Glucose 238 H 10/28/23 11:59: POC Glucose 207 H I & O for Last 24 hours: Intake & Output 10/25/23 10/26/23 10/27/23 10/28/23 23:59 23:59 23:59 23:59 Intake Total 660 / 660 Output Total 0 / 0 Balance 660 / 660 Weight 121.336 kg Constitutional Constitutional: no acute distress *Routine HEENT Exam Head: Present normocephalic Eye: Present EOMI and PERRL ENT: Present mucous membranes moist *Routine Neck Exam Neck: Present supple; Absent lymphadenopathy *Routine Respiratory Exam Respiratory: Present CTA bilaterally *Routine Cardiovascular Exam Cardiovascular: Present RRR *Routine Abdominal Exam Abdominal: Present soft and normoactive bowel sounds; Absent tenderness *Routine Extremities Exam Extremities: Absent cyanosis, clubbing or edema *Routine Skin Exam Skin: Present warm; Absent rash *Routine Neurological Exam Neurological: Present alert and oriented X3 Results Data Completed and Pending Labs on day of discharge: Labs from last 24 hours 10/28/23 10/28/23 10/28/23 11:59 09:01 06:40 WBC RBC Hgb Hct MCV MCH MCHC RDW Plt Count MPV Neut % (Auto) Lymph % (Auto) [place] % (Auto) Eos % (Auto) Baso % (Auto) Neut # (Auto) Lymph # (Auto) [place] # (Auto) Eos # (Auto) Baso # (Auto) PT INR Sodium Potassium Chloride Carbon Dioxide Anion Gap BUN Creatinine Estimated Creat Clear Estimated GFR Est GFR ( Amer) Glucose POC Glucose 207 H 238 H Hemoglobin A1c Calcium Magnesium Total Bilirubin AST ALT Alkaline Phosphatase Troponin I 0.02 NT-Pro-B Natriuret Pep Total Protein Albumin Globulin Albumin/Globulin Ratio Triglycerides Cholesterol LDL Cholesterol Direct VLDL Cholesterol HDL Cholesterol Cholesterol/HDL Ratio 10/28/23 10/28/23 05:33 03:30 WBC 8.1 RBC 4.43 Hgb 10.8 L Hct 34.8 L MCV 78.5 L MCH 24.4 L MCHC 31.1 L RDW 17.6 H Plt Count 273 MPV 7.8 Neut % (Auto) 67.9 Lymph % (Auto) 21.0 [place] % (Auto) 6.3 Eos % (Auto) 4.5 Baso % (Auto) 0.3 Neut # (Auto) 5.5 Lymph # (Auto) 1.7 [place] # (Auto) 0.5 Eos # (Auto) 0.4 Baso # (Auto) 0.0 PT 10.7 INR 0.99 Sodium 139 Potassium 3.9 Chloride 105 Carbon Dioxide 25 Anion Gap 12.9 BUN 27 H Creatinine 1.80 H Estimated Creat Clear 30 Estimated GFR 29 L Est GFR ( Amer) 35 L Glucose 151 H POC Glucose 150 H Hemoglobin A1c 7.6 H Calcium 8.2 L Magnesium 2.1 Total Bilirubin 0.5 AST 22 ALT 26 Alkaline Phosphatase 167 H Troponin I 0.02 NT-Pro-B Natriuret Pep 1270 H Total Protein 6.7 Albumin 3.8 Globulin 2.9 Albumin/Globulin Ratio 1.3 Triglycerides 125 Cholesterol 121 L LDL Cholesterol Direct 69.66 L VLDL Cholesterol 25 HDL Cholesterol 29 L Cholesterol/HDL Ratio 4.2 H DS: Diagnosis Discharge Diagnosis (1) Intermittent chest pain: Status: Acute Code(s): R07.9 - Chest pain, unspecified (2) Mitral regurgitation: Status: Acute Code(s): I34.0 - Nonrheumatic mitral (valve) insufficiency Qualifiers: Cardiac valve disease etiology: etiology unspecified Qualified Code(s): I34.0 - Nonrheumatic mitral (valve) insufficiency (3) Chronic systolic heart failure: Status: Acute Code(s): I50.22 - Chronic systolic (congestive) heart failure (4) Diabetes mellitus, type 2: Status: Acute Code(s): E11.9 - Type 2 diabetes mellitus without complications Qualifiers: Diabetes mellitus residential insulin use: with intermodal customer service use Diabetes mellitus complication status: with other specified complication Qualified Code(s): E11.69 - Type 2 diabetes mellitus with other specified complication; Z79.4 - terminologist (current) use of insulin (5) Chronic kidney disease: Status: Acute Code(s): N18.9 - Chronic kidney disease, unspecified Qualifiers: Chronic kidney disease stage: stage 3 (moderate) Chronic kidney disease stage 3 subtype: stage 3a (GFR 45-59) Qualified Code(s): N18.31 - Chronic kidney disease, stage 3a (6) History of gastroesophageal reflux (GERD): Status: Acute Code(s): Z87.19 - Personal history of other diseases of the digestive system (7) Hyperlipidemia: Status: Acute Code(s): E78.5 - Hyperlipidemia, unspecified Qualifiers: Hyperlipidemia type: unspecified Qualified Code(s): E78.5 - Hyperlipidemia, unspecified (8) History of automatic internal cardiac defibrillator (AICD): Status: Acute Code(s): Z95.810 - Presence of automatic (implantable) cardiac defibrillator Meds Home Medications and Allergies Home Medications Medication Instructions Recorded Confirmed Type acetaminophen 325 mg tablet 325 mg PO QID PRN Pain 12/09/22 10/28/23 History (Tylenol) albuterol sulfate 90 mcg/actuation 1 puff inhalation QIDP PRN 12/09/22 10/28/23 History aerosol inhaler breathing problems allopurinol 100 mg tablet 100 mg PO DAILY Gout 12/09/22 10/28/23 History aripiprazole 2 mg tablet 2 mg PO DAILY mood 12/09/22 10/28/23 History atorvastatin 80 mg tablet 80 mg PO DAILY Cholesterol 12/09/22 10/28/23 History duloxetine 60 mg capsule,delayed 60 mg PO DAILY Depression 12/09/22 10/28/23 History release sprinkle gabapentin 100 mg capsule 100 mg PO DAILY Pain 12/09/22 10/28/23 History insulin detemir U-100 100 unit/mL 46 unit SQ BID Diabetes 12/09/22 10/28/23 History subcutaneous solution (Levemir U-100 Insulin) insulin lispro 100 unit/mL 0 sliding scale dose SQ TIDWMEAL 12/09/22 10/28/23 History subcutaneous pen Diabetes lorazepam 2 mg tablet 2 mg PO BID Anxiety 12/09/22 10/28/23 History melatonin 10 mg tablet 10 mg PO HS PRN Sleep 12/09/22 10/28/23 History ondansetron HCl 4 mg tablet 4 mg PO Q6H PRN Nausea And Vomiting 12/09/22 10/28/23 History pantoprazole 40 mg tablet,delayed 40 mg PO DAILY Acid reflux 12/09/22 10/28/23 History release potassium chloride 20 mEq 20 meq PO DAILY electrolyte 12/09/22 10/28/23 History tablet,extended release semaglutide 1 mg/dose (4 mg/3 mL) 1 mg SQ WEEKLY Diabetes 12/09/22 10/28/23 History subcutaneous pen injector (Ozempic) tizanidine 4 mg capsule 4 mg PO HS PRN Muscle Spasm 12/09/22 10/28/23 History isosorbide mononitrate 30 mg 30 mg PO DAILY 10/28/23 10/28/23 History tablet,extended release 24 hr metoprolol succinate 50 mg 150 mg PO AM 10/28/23 10/28/23 History tablet,extended release 24 hr rivaroxaban 15 mg tablet (Xarelto) 15 mg PO DAILY 10/28/23 10/28/23 History torsemide 20 mg tablet 20 mg PO DAILY 10/28/23 10/28/23 History New Prescriptions to Start Prescriptions: Allergies Allergy/AdvReac Type Severity Reaction Status Date / Time ketorolac [From Toradol] Allergy Rash Verified 10/28/23 02:27 metformin Allergy Diarrhea Verified 10/28/23 02:27 nitroglycerin Allergy Rash Verified 10/28/23 02:27 Penicillins Allergy Rash Verified 10/28/23 02:27 tramadol Allergy Rash Verified 10/28/23 02:27 Discharge Plan Disposition Patient Disposition: Home, Self-Care Condition: Good Follow up Plan Follow up with: Joshua Alexander MD [Staff Physician] - 1 week Prescriptions/Medication Reconciliation: Continued torsemide 20 mg tablet 20 mg PO DAILY isosorbide mononitrate 30 mg tablet extended release 24 hr 30 mg PO DAILY Xarelto 15 mg tablet 15 mg PO DAILY metoprolol succinate 50 mg tablet extended release 24 hr 150 mg PO AM atorvastatin 80 mg Tablet 80 mg PO DAILY acetaminophen [Tylenol] 325 mg Tablet 325 mg PO QID PRN (Reason: Pain) ondansetron HCl 4 mg Tablet 4 mg PO Q6H PRN (Reason: Nausea And Vomiting) allopurinol 100 mg Tablet 100 mg PO DAILY lorazepam 2 mg Tablet 2 mg PO BID gabapentin 100 mg Capsule 100 mg PO DAILY tizanidine 4 mg Capsule 4 mg PO HS PRN (Reason: Muscle Spasm) melatonin 10 mg Tablet 10 mg PO HS PRN (Reason: Sleep) potassium chloride 20 mEq Tablet Extended Release 20 meq PO DAILY duloxetine 60 mg Capsule, Delayed Rel Sprinkle 60 mg PO DAILY Levemir U-100 Insulin 100 unit/mL Solution 46 unit SQ BID Ozempic 1 mg/dose (4 mg/3 mL) Pen Injector 1 mg SQ WEEKLY pantoprazole 40 mg tablet,delayed release (DR/EC) 40 mg PO DAILY Patient Comments: 40 mg, Oral, Daily albuterol sulfate 90 mcg/actuation HFA aerosol inhaler 1 puff INHALATION QIDP PRN (Reason: breathing problems ) Patient Comments: 1 puff, Inhalation, 4 Times Daily PRN insulin lispro 100 unit/mL insulin pen 0 sliding scale dose SQ TIDWMEAL Patient Comments: sliding scale aripiprazole 2 mg tablet 2 mg PO DAILY Patient Comments: TAKE 1 TABLET BY MOUTH EVERYDAY AT BEDTIME Problem Reconciliation Problems Reviewed?: Yes Patient Discharge Instructions ACTIVITY: Continue current activity DIET: continue same diet Patient Instructions: DI for Angina Providers Primary Care Provider: Robb Dailey Admit Provider: Justus Head Attending Provider: Justus Head
--- NOTE | 2023-10-30 13:13 | CARE MANAGER ---
Unable to reach patient via phone to discuss recent discharge. Call attempted x 2.
== END 2023-10-28 12:36 | disposition home or self-care (01) ==
PROVIDERS: Nurse Practitioner Family; Admitting Provider Internal Medicine Adolescent Medicine; PCP Pediatrics; Visit Provider Internal Medicine Adolescent Medicine
DX: I21.4 Non-ST elevation (NSTEMI) myocardial infarction (principal); I13.0 Hypertensive heart and chronic kidney disease with heart failure and stage 1 through stage 4 chronic kidney disease, or unspecified chronic kidney disease; R07.9 Chest pain, unspecified; I34.0 Nonrheumatic mitral (valve) insufficiency; I50.22 Chronic systolic (congestive) heart failure; E11.22 Type 2 diabetes mellitus with diabetic chronic kidney disease; Z79.4 Long term (current) use of insulin; N18.31 Chronic kidney disease, stage 3a; Z87.19 Personal history of other diseases of the digestive system; E78.5 Hyperlipidemia, unspecified; Z95.810 Presence of automatic (implantable) cardiac defibrillator; I25.118 Atherosclerotic heart disease of native coronary artery with other forms of angina pectoris
CPT/HCPCS: G0379; 36415; 80053; 80061; 82962; 83036; 83735; 83880; 84484; 85025; 85610; 93005; G0378